=== PATIENT | male | born 1960 | race Caucasian/White ===

== ENCOUNTER 2024-09-13 10:17 | Emergency (ER) | payer BC ==
[2024-09-13 10:43] VITALS: TEMP 97
--- NOTE | 2024-09-13 11:05 | ERPHSYRPT ---
- History of Present Illness Time Seen by Provider: 09/13/24 10:50 Source: patient Exam Limitations: no limitations Patient Subjective Stated Complaint: SOB Triage Nursing Assessment: Patient ambulated back to ED and transferred self to bed. Patient A+O X 3. Patient's skin pink, warm and dry. Patient complains of increased SOB and swelling to BLE over the past few days that has gotten worse today. Patient states 3 weeks ago he was prescribed Levothyroxine 25 mcg and 3 weeks later he started having swelling to Arturo hands and feet. Patient states last week he was prescribed Lasix and K+ for swelling. Patient stated he is unable to walk around his home and lie flat without getting SOB. Lungs noted to be diminished throughout. Patient has swelling noted to BLE. Patient also reports occasional productive cough with thin clear mucus. Physician History: Patient is a 64-year-old male no significant past medical history however he does not follow-up with his primary care doctor regularly presents to our ED for evaluation of shortness of breath and lower extremity leg swelling. Symptoms started approximately 3 weeks ago. Swelling has got progressively worse. Patient followed up with his primary care doctor last week. Patient was started on Lasix and potassium for the swelling. Patient now reports that his shortness of breath has gotten worse to the point where he has trouble maneuvering around his house. Patient normally does not require oxygen. Shortness of breath worse with exertion and lying flat. Occasional cough. Patient otherwise feels well. He voices no other complaints or concerns at this time. Portions of this note were created with voice recognition technology. There may be grammatical, spelling, punctuation or sound alike errors Timing/Duration: week(s) (3 weeks) Activities at Onset: none Severity of Dyspnea-Max: moderate Severity of Dyspnea-Current: mild Possible Cause: no prior episodes Modifying Factors: Improves With: activity Associated Symptoms: cough, leg swelling Allergies/Adverse Reactions: No Known Drug Allergies Allergy (Unverified 09/13/24 10:36) Hx Influenza Vaccination/Date Given: Yes Hx Pneumococcal Vaccination/Date Given: No Immunizations Up to Date: Yes Travel Risk - International Travel Have you traveled outside of the country in past 3 weeks: No - Emerging Infectious Disease Are you exhibiting symptoms associated with any current EIDs: No - Review of Systems Constitutional: No Symptoms, No Fever, No Chills Eyes: No Symptoms Ears, Nose, & Throat: No Symptoms Respiratory: No Symptoms, No Cough, No Dyspnea Cardiac: No Symptoms, No Chest Pain, No Edema, No Syncope Abdominal/Gastrointestinal: No Symptoms, No Abdominal Pain, No Nausea, No Vomiting, No Diarrhea Genitourinary Symptoms: No Symptoms, No Dysuria Musculoskeletal: No Symptoms, No Back Pain, No Neck Pain Skin: No Symptoms, No Rash Neurological: No Symptoms, No Dizziness, No Focal Weakness, No Sensory Changes Psychological: No Symptoms Endocrine: No Symptoms Hematologic/Lymphatic: No Symptoms Immunological/Allergic: No Symptoms All Other Systems: Reviewed and Negative - Past Medical History Pertinent Past Medical History: No Neurological History: No Pertinent History ENT History: No Pertinent History Cardiac History: No Pertinent History Respiratory History: No Pertinent History Endocrine Medical History: No Pertinent History Musculoskeletal History: No Pertinent History GI Medical History: No Pertinent History History: No Pertinent History Psycho-Social History: No Pertinent History Male Reproductive Disorders: No Pertinent History - Past Surgical History Past Surgical History: Yes Neuro Surgical History: No Pertinent History Cardiac: No Pertinent History Respiratory: No Pertinent History Gastrointestinal: No Pertinent History Genitourinary: No Pertinent History Musculoskeletal: No Pertinent History Male Surgical History: Vasectomy - Social History Smoking Status: Never smoker Exposure to second hand smoke: No Drug Use: none - Social Determinants of Health Will the patient participate in the screening: Yes Do you worry about a steady place to live?: No Do you have any problems with any of the following?: No known problems In the past 12 months,have you had to go without utilities?: No Transportation Issues: No Has anyone in your support network made you feel unsafe?: No Have you or anyone in your house had to go w/o enough food: No - Nursing Vital Signs Nursing Vital Signs: Initial Vital Signs Pulse Rate 110 H 09/13/24 10:36 Respiratory Rate 39 H 09/13/24 10:36 Blood Pressure 161/107 09/13/24 10:36 O2 Sat by Pulse Oximetry 91 L 09/13/24 10:36 Pain Scale Pain Intensity 0 - Physical Exam General Appearance: no apparent distress, alert Eye Exam: PERRL/EOMI, eyes nml inspection Ears, Nose, Throat Exam: hearing grossly normal, normal ENT inspection, normal pharynx Neck Exam: normal inspection, supple Respiratory Exam: diminished breath sounds, crackles/rales Cardiovascular/Chest Exam: normal heart sounds, regular rate/rhythm Abdominal/Gastrointestinal Exam: soft, No tenderness, No distention, No mass Extremity Exam: non-tender, normal range of motion, normal inspection, no calf tenderness, no pedal edema Neurologic Exam: alert, oriented x 3, cooperative, market development trainer II-XII nml as tested, sensation nml, No motor deficits Skin Exam: normal color, warm, No dry Lymphatic Exam: No adenopathy SpO2 Interpretation: normal SpO2: 95 O2 Delivery: Room Air - Course Nursing assessment & vital signs reviewed: Yes EKG Interpreted by Me: RATE (96), Sinus Rhythm, NORMAL AXIS, NORMAL INTERVALS, Left Bundle Branch Block - Radiology Exams Chest X-ray Interpretation: Teleradiologist Report (Pulmonary congestion) Ordered Tests: Active Orders 24 hr Category Date Time Status Ballistics Tester STAT Care 09/13/24 11:04 Active EKG-ER Only STAT Care 09/13/24 11:03 Active IV Insertion STAT Care 09/13/24 11:03 Active Pulse Oximetry (ED) STAT Care 09/13/24 11:03 Active CHEST 1 VIEW (PORTABLE) Stat Exams 09/13/24 11:04 Completed CBC W DIFF Stat Lab 09/13/24 11:00 Completed CMP Stat Lab 09/13/24 11:00 Completed NT PRO BNPII Stat Lab 09/13/24 11:00 Completed TROPONIN Q4H Lab 09/13/24 11:00 Completed TROPONIN Q4H Lab 09/13/24 13:52 Completed TROPONIN Q4H Lab 09/13/24 19:15 Ordered Medication Summary Discontinued Medications Generic Name Dose Route Start Last Admin Trade Name Manjeetq PRN Reason Stop Dose Admin Furosemide 40 mg 09/13/24 12:24 09/13/24 12:41 Furosemide 40 Mg/4 Ml Vial IV 09/13/24 12:25 40 mg STAT ONE Administration Furosemide Confirm 09/13/24 12:37 Furosemide 40 Mg/4 Ml Vial Administered 09/13/24 12:38 Dose 40 mg .ROUTE .STK-MED ONE Nitroglycerin 1 gm 09/13/24 12:24 09/13/24 12:47 Nitroglycerin 1 Gm Packet TOP 09/13/24 12:25 1 gm STAT ONE Administration Nitroglycerin Confirm 09/13/24 12:37 Nitroglycerin 1 Gm Packet Administered 09/13/24 12:38 Dose 1 gm .ROUTE .STK-MED ONE Lab/Rad Data: Laboratory Result Diagrams 09/13/24 11:00 09/13/24 11:00 Laboratory Results 09/13/24 09/13/24 09/13/24 Range/Units 13:52 11:00 11:00 WBC (4.23-9.07) x10^3/uL RBC (4.63-6.08) x10^6/uL Hgb (13.7-17.5) g/dL Hct (40.1-51.0) % MCV (79.0-92.2) fL MCH (25.7-32.2) pg MCHC (32.3-36.5) g/dL RDW (11.6-14.4) % Plt Count (163-337) x10^3/uL MPV (9.4-12.4) fL Gran % (34.0-67.9) % Immature Gran % (Auto) (0.001-0.429) % Nucleat RBC Rel Count (0.00-0.2) % Eos # (Auto) (0.04-0.54) x10^3/uL Immature Gran # (Auto) (0.001-0.031) x10^3u/L Absolute Lymphs (auto) (1.32-3.57) x10^3/uL Absolute Monos (auto) (0.30-0.82) x10^3/uL Absolute Nucleated RBC (0.00-0.012) x10^3u/L Lymphocytes % (21.8-53.1) % Monocytes % (5.3-12.2) % Eosinophils % (0.8-7.0) % Basophils % (0.2-1.2) % Absolute Granulocytes (1.78-5.38) x10^3/uL Basophils # (0.01-0.08) x10^3/uL Sodium 140 (135-145) mmol/L Potassium 4.0 (3.5-5.1) mmol/L Chloride 103 (98-107) mmol/L Carbon Dioxide 23 (22-30) mmol/L Anion Gap 19.0 H (5-15) MEQ/L BUN 18 (9-20) mg/dL Creatinine 1.12 (0.66-1.25) mg/dL Estimated GFR 73.8 ML/MIN Glucose 119 H (74-106) mg/dL Calcium 8.8 (8.4-10.2) mg/dL Total Bilirubin 1.30 (0.2-1.3) mg/dL AST 69 H (17-59) U/L ALT 45 (0-50) U/L Alkaline Phosphatase 59 (38-126) U/L Troponin I 0.075 H* 0.077 H* (0.000-0.033) ng/mL NT-Pro-B Natriuret Pep 50087 (<300) pg/mL Serum Total Protein 7.8 (6.3-8.2) g/dL Albumin 4.7 (3.5-5.0) g/dL Influenza Type A Ag (NEGATIVE) Influenza Type B Ag (NEGATIVE) RSV (PCR) (NEGATIVE) SARS-CoV-2 (PCR) (NEGATIVE) 09/13/24 09/13/24 Range/Units 11:00 10:30 WBC 9.6 H (4.23-9.07) x10^3/uL RBC 4.54 L (4.63-6.08) x10^6/uL Hgb 13.2 L (13.7-17.5) g/dL Hct 40.7 (40.1-51.0) % MCV 89.6 (79.0-92.2) fL MCH 29.1 (25.7-32.2) pg MCHC 32.4 (32.3-36.5) g/dL RDW 14.0 (11.6-14.4) % Plt Count 213 (163-337) x10^3/uL MPV 11.1 (9.4-12.4) fL Gran % 77.9 H (34.0-67.9) % Immature Gran % (Auto) 0.5 H (0.001-0.429) % Nucleat RBC Rel Count 0.0 (0.00-0.2) % Eos # (Auto) 0.11 (0.04-0.54) x10^3/uL Immature Gran # (Auto) 0.05 H (0.001-0.031) x10^3u/L Absolute Lymphs (auto) 1.08 L (1.32-3.57) x10^3/uL Absolute Monos (auto) 0.82 (0.30-0.82) x10^3/uL Absolute Nucleated RBC 0.00 (0.00-0.012) x10^3u/L Lymphocytes % 11.3 L (21.8-53.1) % Monocytes % 8.6 (5.3-12.2) % Eosinophils % 1.1 (0.8-7.0) % Basophils % 0.6 (0.2-1.2) % Absolute Granulocytes 7.47 H (1.78-5.38) x10^3/uL Basophils # 0.06 (0.01-0.08) x10^3/uL Sodium (135-145) mmol/L Potassium (3.5-5.1) mmol/L Chloride (98-107) mmol/L Carbon Dioxide (22-30) mmol/L Anion Gap (5-15) MEQ/L BUN (9-20) mg/dL Creatinine (0.66-1.25) mg/dL Estimated GFR ML/MIN Glucose (74-106) mg/dL Calcium (8.4-10.2) mg/dL Total Bilirubin (0.2-1.3) mg/dL AST (17-59) U/L ALT (0-50) U/L Alkaline Phosphatase (38-126) U/L Troponin I (0.000-0.033) ng/mL NT-Pro-B Natriuret Pep (<300) pg/mL Serum Total Protein (6.3-8.2) g/dL Albumin (3.5-5.0) g/dL Influenza Type A Ag NEGATIVE (NEGATIVE) Influenza Type B Ag NEGATIVE (NEGATIVE) RSV (PCR) NEGATIVE (NEGATIVE) SARS-CoV-2 (PCR) NEGATIVE (NEGATIVE) - Progress Progress: improved Air Movement: good Progress Note: Patient accepted by Dr. Glass [facility] emergency department at 4:54 PM. Patient is a 64-year-old male presents to our ED for evaluation of new onset shortness of breath and leg swelling. Workup reveals congestive heart failure as confirmed by pulmonary congestion on chest x-ray elevated BNP at 17,000. Phy sical exam patient has crackles at bilateral bases. Patient received 3 L nasal cannula upon arrival secondary to shortness of breath. Patient's O2 sat on 3 L is 95%. I discussed the case with our hospitalist Dr. Miranda who declined admission at approximately 3 PM. She was concerned with patient's positive troponins. We repeated the troponin and it is stable to slightly decreasing. Patient will require transfer to higher level of care. Plan of care discussed with patient and his who is at the bedside. They agree to transfer to [facility] for further evaluation and treatment. Portions of this note were created with voice recognition technology. There may be grammatical, spelling, punctuation or sound alike errors Complexity of problem addressed is moderate acute complicated. No critical care time. Complex of data reviewed and analyzed is extensive. Test ordered chest reviewed results analyzed and correlated clinically with history and physical exam. Management discussed with hospitalist and ER physician at [facility]. Risk of complication and or risk of morbidity/mortality of patient management is high. Patient requires hospitalization/transfer to higher level of care. Vital stable. Time spent to transfer patient is approximately 20 minutes. Plan of care established for shared decision making. No social determinants of health present to impede follow-up. Portions of this note were created with voice recognition technology. There may be grammatical, spelling, punctuation or sound alike errors 09/13/24 16:54 Blood Culture(s) Obtained: No Antibiotics given: No Counseled pt/family regarding: lab results, diagnosis, rad results - Departure Departure Disposition: Observation Clinical Impression: Elevated troponin, Pulmonary edema, Elevated brain natriuretic peptide (BNP) level, Leg swelling, Congestive heart failure, Hypoxia Condition: Stable Critical Care Time: No Referrals: BATSHEVA ALVA, SURVEY COORDINATOR [Primary Care Provider] - Follow up/PCP as directed Instructions: Heart Failure Additional Instructions: Discharge/Care Plan ANAIVYSANTOS SARABIA was seen on 09/13/24 in the Emergency Room. The patient was counseled regarding Diagnosis,Lab results, Imaging studies, need for follow up and when to return to the Emergency Room. Prescriptions given: Discharge Note I have spoken with the patient and/or caregivers. I have explained the patient's condition, diagnosis and treatment plan based on the information available to me at this time. I have answered the patient's and/or caregiver's questions and addressed any concerns. The patient and/or caregivers have as good understanding of the patient's diagnosis, condition and treatment plan as can be expected at this point. The vital signs have been stable. The patient's condition is stable and appropriate for discharge from the emergency department. The patient will pursue further outpatient evaluation with the primary care physician or other designated or consulting physician as outlined in the discharge instructions. The patient and/or caregivers are agreeable to this plan of care and follow-up instructions have been explained in detail. The patient and/or caregivers have received these instruction. The patient/and or caregivers are aware that any significant change in condition or worsening of symptoms should prompt an immediate return to this or the closest emergency department or call 911.
[2024-09-13 11:09] LABS: Absolute Neutrophil Ct (ANC) 7.47 x10^3/uL (1.78-5.38); BASOPHIL % 0.6 % (0.2-1.2); Basophil (Absolute #) 0.06 x10^3/uL (0.01-0.08); Eosinophil % 1.1 % (0.8-7.0); Eosinophil (Absolute #) 0.11 x10^3/uL (0.04-0.54); Hematocrit 40.7 % (40.1-51.0); Hemoglobin 13.2 g/dL (13.7-17.5); IMMATURE GRAN # 0.05 x10^3u/L (0.001-0.031); IMMATURE GRAN % 0.5 % (0.001-0.429); Lymphocyte (Absolute #) 1.08 x10^3/uL (1.32-3.57); Lymphocytes % 11.3 % (21.8-53.1); Mean Cell Volume 89.6 fL (79.0-92.2); Mean Corpuscular Hemoglobin 29.1 pg (25.7-32.2); Mean Corpuscular Hgb Concent. 32.4 g/dL (32.3-36.5); Mean Platelet Volume 11.1 fL (9.4-12.4); Monocyte (Absolute #) 0.82 x10^3/uL (0.30-0.82); Monocytes % 8.6 % (5.3-12.2); Neutrophil % 77.9 % (34.0-67.9); Platelet Count 213 x10^3/uL (163-337); Red Blood Count 4.54 x10^6/uL (4.63-6.08); White Blood Count 9.6 x10^3/uL (4.23-9.07)
[2024-09-13 11:26] LABS: ALBUMIN 4.7 g/dL (3.5-5.0); BILIRUBIN,TOTAL 1.3 mg/dL (0.2-1.3); Calcium 8.8 mg/dL (8.4-10.2); Creatinine 1 1.12 mg/dL (0.66-1.25); EST GLOMERULAR FILTRATION RATE 73.8 ML/MIN; Total Protein 7.8 g/dL (6.3-8.2)
--- NOTE | 2024-09-13 11:31 | XRAY ---
Indication: Short of breath. Comparison: None Portable chest demonstrates cardiomegaly, vascular congestion, pulmonary edema, and small bibasilar effusions favoring cardiac decompensation/CHF. Superimposed pneumonia not completely excluded. Bony thorax intact.
[2024-09-13] MEDS ORDERED: NITRO-BID 2% UD PACKETS ONE (12:37)
[2024-09-13] MEDS ORDERED: Lasix 40 MG/4 ML ONE (12:37)
[2024-09-13] MEDS: Lasix 40 MG/4 ML IV ONE (12:41)
[2024-09-13] MEDS: NITRO-BID 2% UD PACKETS TOP ONE (12:47)
[2024-09-13 14:41] LABS: INFLUENZA A NEGATIVE (NEGATIVE); INFLUENZA B NEGATIVE (NEGATIVE); RESPIRATORY SYNCTIAL VIRUS NEGATIVE (NEGATIVE); SARS-CoV-2 Xpert Express NEGATIVE (NEGATIVE)
[2024-09-13 15:08] VITALS: RESP 28
[2024-09-13 17:37] VITALS: BP 140/101; PULSE 94; O2SAT 97
== END 2024-09-13 18:07 | disposition short-term general hospital (02) ==
LOC: ED 10:17
DX: I50.1 Left ventricular failure, unspecified (principal); R77.8 Other specified abnormalities of plasma proteins; R79.89 Other specified abnormal findings of blood chemistry; R60.0 Localized edema; R09.02 Hypoxemia; R06.02 Shortness of breath
CPT/HCPCS: 0241U; 36415; 71045; 80053; 83880; 84484; 85025; 93005; 93041; 94760; 96374; 99285; J1940; A9270-GY